=== PATIENT | female | born 1985 | race Caucasian/White ===

== ENCOUNTER 2016-07-08 06:18 | Observation (INO) | payer BC ==
[~2016-07-08] VITALS: Ht 167.6 cm; Wt 100.0 kg
[2016-07-08] VITALS (15 sets, daily range): BP systolic 106–127; BP diastolic 65–82; PULSE 64–90; RESP 8–20; TEMP 98–98.6; O2SAT 96–98
[2016-07-08] MEDS ORDERED: TROPICAMIDE 1% OPHT SOLN 15 ML BTL ONE (06:24)
[2016-07-08] MEDS ORDERED: PHENYLEPHRINE HCL 10% OPTH SOLN 5 ML BTL ONE (06:24)
[2016-07-08] MEDS ORDERED: CYCLOPENTOLATE HCL 1% OPHT SOLN 2 ML BTL ONE (06:24)
[2016-07-08] MEDS ORDERED: ALPR.5 PO (06:41)
[2016-07-08] MEDS ORDERED: LACTATED RINGER'S 1000 ML INJ 1,000 ML ONE (06:53)
[2016-07-08] MEDS ORDERED: fentaNYL CITRATE 250 MCG/5 ML AMP ONE (07:09)
[2016-07-08] MEDS ORDERED: FAMOTIDINE 20 MG/2 ML VIAL ONE (07:17)
[2016-07-08] MEDS ORDERED: MIDAZOLAM HCL 2 MG/2 ML VIAL ONE (07:17)
[2016-07-08] MEDS ORDERED: ACETAMINOPHEN 1000 MG/100 ML VIAL IV ONE (07:17)
[2016-07-08] MEDS ORDERED: BUPIVACAINE HCL PF 0.25% 30 ML VIAL ONE (08:12)
[2016-07-08] MEDS ORDERED: ceFAZolin INJ 1,000 MG VIAL ONE (08:38)
[2016-07-08 09:02] LABS: AUTOMATED NEUTROPHIL # 4.2 TH/MM3 (1.8-7.7); BASOPHIL # 0.1 TH/MM3 (0-0.2); BASOPHIL % 1.4 % (0.0-2.0); EOSINOPHIL # 0.1 TH/MM3 (0-0.4); EOSINOPHIL % 1.8 % (0.0-4.0); HEMATOCRIT 36.1 % (35.0-46.0); HEMO FLAGS DIFF FINAL; LYMPH % 34.2 % (9.0-44.0); LYMPHOCYTE # 2.7 TH/MM3 (1.0-4.8); MEAN CELL VOLUME 89.5 FL (80.0-100.0); MEAN CORPUSCULAR HEMOGLOBIN 29.9 PG (27.0-34.0); MEAN CORPUSCULAR HGB CONC 33.5 % (32.0-36.0); NEUT % 53.6 % (16.0-70.0); PLATELET COUNT 196 TH/MM3 (150-450); RED BLOOD COUNT 4.04 MIL/MM3 (4.00-5.30); RED CELL DISTRIBUTION WIDTH 12.3 % (11.6-17.2); WHITE BLOOD COUNT 7.8 TH/MM3 (4.0-11.0)
[2016-07-08] MEDS ORDERED: ONDANSETRON HCL 4 MG/2 ML VIAL IV PUSH ONE (10:43)
[2016-07-08] MEDS ORDERED: PROPOFOL 200 MG/20 ML AMP IV ONE (10:43)
[2016-07-08] MEDS ORDERED: KETOROLAC TROMETHAMINE 60 MG/2 ML (IM) VIAL IM ONE (10:43)
[2016-07-08] MEDS ORDERED: LACTATED RINGER'S 1000 ML INJ 2,000 ML IV ONE (10:43)
[2016-07-08 11:26] LABS: HEMATOCRIT 35.9 % (35.0-46.0); REVIEW FLAG FINAL
[2016-07-08] MEDS ORDERED: oxyCODONE/ACETAMINOPHEN 7.5 MG/325 MG TAB PO PRN (12:00)
[2016-07-08] MEDS ORDERED: PROMETHAZINE HCL 25 MG TAB PO PRN (12:00)
[2016-07-08] MEDS ORDERED: KETOROLAC TROMETHAMINE 30 MG/ML (IVP) VIAL IV PUSH PRN (12:00)
[2016-07-08] MEDS ORDERED: MORPHINE SULFATE 4 MG/ML INJ ONE (12:22)
--- NOTE | 2016-07-08 13:46 | RADRPT ---
EXAM DATE/TIME: 07/08/2016 10:10 [place] COMPARISON: No previous studies available for comparison. INDICATIONS : Instrument count. MEDICAL HISTORY : None. SURGICAL HISTORY : None. ENCOUNTER: Initial ACUITY: 1 day PAIN SCORE: Non-responsive. LOCATION: Bilateral lower quadrant abdomen FINDINGS: Examination of the abdomen demonstrates a normal bowel gas pattern. No free air is identified. No o rganomegaly is evident. Osseous structures are intact. No retained radiodense surgical instrument CONCLUSION: Negative Reymundo Choe MD on July 08, 2016 at 13:44 Board Certified Radiologist. This report was verified electronically.
[2016-07-08 14:26] LABS: HEMATOCRIT 35.4 % (35.0-46.0); REVIEW FLAG FINAL
--- NOTE | 2016-08-09 21:42 | PD.OP ---
Operative Report Date of Surgery: July 08, 2016 Preoperative Diagnosis: (1) Encounter for female sterilization procedure Postoperative Diagnosis: (1) Encounter for female sterilization procedure (2) Intraoperative hemorrhage involving circulatory system complicating non- circulatory system procedure unintentional laceration of left epigastric artery Procedure: laparoscopic application of Falope rings laparotomy with repair of left epigastric artery Anesthesia: general endotracheal, Dr. Ortiz Surgeon: Dolly Martin Bacteriology Teacher(s): [place] Resident Surgeon: n/a Operation and Findings: After induction of general anesthesia with intubation, the patient was positioned in dorso-lithotomy position in yellow-fin stirrups, prepped with Betadine and draped. Time-out was done and the case was begun. An open-sided speculum was placed in the vagina and the cervix was grasped with a single- tooth tenaculum. A Flowity uterine manipulator was placed and the other instruments removed. After re-gloving a 5mm incision was cut in the umbilicus and a Veress needle was inserted. After instillation of 2 liters of CO2, the scope was inserted with no adhesions or masses seen. Transillumination was attempted, but the patient's moderate obesity and diastasis recti after her recent made location of the epigastric vessels and large veins inadequate by this method. Using anatomical landmarks, the second port was introduced using the sharp metal trochar from the kit provided. The intra-abdominal view showed an immediate spurt of red blood around the cannula and this continued with brisk pumping. The trochar was removed and the trocar incision was extended laterally to the lateral edge of the rectus muscle. Dissecting quickly and bluntly under the muscle body to the trochar site, I then held firm pressure on the artery until laparotomy instruments could be opened. This effectively stopped the hemorrhage. When more instruments and help became available, an 0-Vicryl suture on a Surinder needle was passed around the rectus muscle, retracting the bowel away from the needle with my left hand while retrieving the needle intrabdominaly by grasping with a needle log driver and completing the the ligation of the artery and about 1/3 of the muscle belly below the epigastric laceration. A second suture was placed in the same way above the laceration. The bleeding was thus controlled. The facia was closed with 0 Prolene. We then converted back to laparoscopy and re-inflated the abdomen. A suction home planning consultant salesperson was used to clear about 600 cc of blood from the pelvis and abdomen. We then proceeded with the application of the Falope rings in the midportion of each tube, taking care to identify the fimbria, and to get good blanching of the isolated knuckle of tubes bilaterally. Photos were taken to show this as well as to show the port site where the laceration occurred as intact without hematoma or active bleeding. The pneumoperitoneum was released, the skin incisions were closed with 4-0 Monocryl subcuticularly and Dermabond was applied. Pre-op antibiotics were not indicated but administered when laparotomy was needed. Serial H/H remained in the normal range, although it did drop as expected. She remained hemodynamically stable throughout. At the end of the case, the uterine manipulator was removed and she was replaced supine. An x-ray of the abdomen was performed because the laparotomy instruments had not been counted in advance, due to the urgent nature of the problem. After it was read, the patient was awakened and transferred to the PACU breathing on her own. She was observed for several hours post-operatively in the ICU as an overflow bed. H/H was confirmed to stay stable and in the normal range. Dolly Martin MD Aug 09, 2016 21:42
--- NOTE | 2016-08-09 21:54 | HHI.DS ---
Discharge Summary Admission Date July 08, 2016 at 09:30 Admitting Diagnosis Pt Condition on Discharge: Good Discharge Disposition: Discharge Home Discharge Instructions DIET: Follow Instructions for: As Tolerated, No Restrictions Activities you can perform: Pelvic Rest, See Additionl Instruction Activities to avoid: Lifting/Bending, Bathing, Driving Follow up Referrals: Appointment for Follow Up - 07/20/16 with [facility] Additional Information Patient was anxious to go home after several hours observation in the ICU. She had post-operative pain proportionate to her procedure. Prescriptions for pain medication were given and post-op appointment had already been made at pre-op appointment. I explained what happened to the patient during her post-op recovery several times. I explained what happened and signs of bleeding to watch out for directly to her mother in the waiting room and also too her by phone. I gave him my personal cell phone number to call for any reason. Dolly Martin MD Aug 09, 2016 21:54
== END 2016-07-08 19:40 | disposition home or self-care (01) ==
LOC: PHSDC 06:18 → HSDI 09:30 → PHICU 10:54
PROVIDERS: ADMIT Obstetrics & Gynecology; ATTEND Obstetrics & Gynecology
DX: Z30.2 Encounter for sterilization (principal); E66.9 Obesity, unspecified; I97.52 Accidental puncture and laceration of a circulatory system organ or structure during other procedure
CPT/HCPCS: 00770; 00851; 37617; 58671; 74000; 85014; 85018; 85025; 86850; 86900; 86901; 86920; G0378; J0131; J0690; J1885; J2250; J2270; J2405; J3010; J7120; Q0169